=== PATIENT | male | born 1965 | race Caucasian/White ===

== ENCOUNTER 2019-04-06 07:03 | Emergency (ER) | payer BC ==
[2019-04-06] MEDS ORDERED: Codeine/guaiFENesin 100mg-10 MG/5 ML Syrup 10 ML Cup PO ONE (07:37)
--- NOTE | 2019-04-06 07:45 | EDM.PDOC ---
ED HPI GENERAL MEDICAL PROBLEM - General Chief Complaint: ENT Problem Stated Complaint: THROAT SORE AND WITH BREATHING ISSUES Time Seen by Provider: 04/06/19 07:35 Source of Information: Reports: Patient, RN History Limitations: Reports: Other (limited access to medical records) - History of Present Illness INITIAL COMMENTS - FREE TEXT/NARRATIVE: 54 yo male on vacation from [place] presents with throat pain and trouble swallowing. He is here for anther week, after being here for a week. Was seen recently in [facility] before starting his vacation and begun on prednisone and guaifenesin. Later when he was not improving he presented to the [facility] and they told him his sx's were viral. Overnight he has developed a sense of there being something stuck in his throat. When he tried to drink water today if felt like he was going to choke. His temp last night was 99F. He does have clear rhinorrhea, but no trouble breathing through his nose. Breathing is uncomfortable through his mouth. Took ibuprofen last before going to bed last night. Feel the onset of his sx's began after smoking a cigar. Onset: Gradual Onset Date: 04/01/19 Duration: Day(s):, Getting Worse Location: Reports: Neck (throat) Quality: Reports: Pressure Severity: Moderate Improves with: Reports: Other (not swallowing or breathing) Worsens with: Reports: Eating Context: Reports: Other (see HPI) Associated Symptoms: Reports: Fever/Chills (low grade fever), Shortness of Breath (feels difficult to breath. ). Denies: Nausea/Vomiting Treatments PROP WORKER: Reports: Other (see below) (none since last night) - Related Data Allergies Allergy/AdvReac Type Severity Reaction Status Date / Time No Known Allergies Allergy Verified 04/06/19 07:24 Home Meds: Home Meds Ibuprofen 400 mg PO Q6HR 04/06/19 [History] Past Medical History Musculoskeletal History: Reports: Fracture - Past Surgical History HEENT Surgical History: Reports: Tonsillectomy Musculoskeletal Surgical History: Reports: Ganglion Cyst Social & Family History - Tobacco Use Tobacco Use Comment: has occasional cigar - Recreational Drug Use Recreational Drug Use: No ED ROS ENT - Review of Systems Review Of Systems: See Below Constitutional: Reports: Fever (low grade). Denies: Chills HEENT: Reports: Rhinitis, Throat Pain. Denies: Ear Pain, Eye Discharge, Nosebleed, Sinus Problem, Vertigo Respiratory: Denies: Shortness of Breath, Cough, Sputum Cardiovascular: Reports: No Symptoms Endocrine: Reports: No Symptoms GI/Abdominal: Reports: No Symptoms : Reports: No Symptoms Musculoskeletal: Reports: No Symptoms Skin: Reports: No Symptoms Neurological: Reports: No Symptoms Psychiatric: Reports: No Symptoms ED EXAM, ENT - Physical Exam Exam: See Below Exam Limited By: No Limitations General Appearance: Alert, WD/WN, No Apparent Distress Eye Exam: Bilateral Eye: Normal Inspection Ears: Normal External Exam, Normal Canal, Hearing Grossly Normal, Normal TMs Nose: Normal Inspection, No Blood, Clear Rhinorrhea Mouth/Throat: Normal Inspection, Normal Lips, Normal Oropharynx. No: Pharyngeal Erythema, Tonsillar Erythema, Tonsillar Exudates, Tonsillar Swelling , Uvular Deviation, Uvular Edema Head: Atraumatic, Normocephalic Neck: Normal Inspection, Supple, Non-Tender Respiratory/Chest: No Respiratory Distress, Lungs Clear, Normal Breath Sounds, No Accessory Muscle Use Cardiovascular: Regular Rate, Rhythm, No Edema GI/Abdominal: Normal Bowel Sounds Back: Normal Inspection Extremities: Normal Inspection, Normal Range of Motion, Non-Tender, No Pedal Edema Neurological: Alert, Oriented, CN II-XII Intact, Normal Cognition, No Motor/ Sensory Deficits Psychiatric: Normal Affect, Anxious (mild) Skin: Warm, Dry, Intact, Normal Color, No Rash Course - Vital Signs Text/Narrative:: Dr. Leach has agreed to see Clarence in his office today in [place]. Last Recorded V/S: Last Vital Signs Temp 35.8 C 04/06/19 07:22 Pulse 84 04/06/19 07:22 Resp 16 04/06/19 07:22 BP 119/79 04/06/19 07:22 Pulse Ox 99 04/06/19 07:22 - Orders/Labs/Meds Labs: Laboratory Tests 04/06/19 04/06/19 Range/Units 08:01 08:01 WBC 6.3 (4.5-11.0) K/uL RBC 4.63 (4.30-5.90) M/uL Hgb 13.6 (12.0-15.0) g/dL Hct 40.9 (40.0-54.0) % MCV 88 (80-98) fL MCH 29 (27-31) pg MCHC 33 (32-36) % Plt Count 276 (150-400) K/uL C-Reactive Protein 1.28 H (0.0-0.3) mg/dL Meds: Medications Discontinued Medications Generic Name Dose Route Start Last Admin Trade Name Denise PRN Reason Stop Dose Admin Guaifenesin/Codeine Phosphate 10 ml 04/06/19 07:37 04/06/19 07:46 Robitussin Ac PO 04/06/19 07:38 10 ml ONETIME ONE Administration - Radiology Interpretation Free Text/Narrative:: soft tissue neck X-ray-neg Departure - Departure Time of Disposition: 08:47 Disposition: Home, Self-Care 01 Condition: Good Clinical Impression: Throat pain in adult - Discharge Information *PRESCRIPTION DRUG MONITORING PROGRAM REVIEWED*: No *COPY OF PRESCRIPTION DRUG MONITORING REPORT IN PATIENT GODWIN: No Instructions: Pain Without a Known Cause Referrals: PCP,None [Primary Care Provider] - Forms: ED Department Discharge Additional Instructions: Go to Dr. Leach's office to be seen later today, either before 11 am or after 1 pm. [address] in [address] [facility] and [facility] in [place], [place]. Don't eat or drink before being seen in the event he has to sedate you.
--- NOTE | 2019-04-06 08:38 | CRLCR ---
INDICATION: Pain and trouble swallowing TECHNIQUE: Soft tissue neck 1 view. COMPARISON: None. FINDINGS: The airway is patent and normal. Epiglottis is normal. The retropharyngeal soft tissues are normal. No obvious masses. Degenerative spondylosis is present in the cervical spine at C5-6. IMPRESSION: Unremarkable soft tissue view of the neck. Dictated by Jon Patel MD @ 04/06/2019 8:36:54 AM Dictated by: Jon Patel MD @ 04/06/2019 08:37:01 (Electronically Signed)
== END 2019-04-06 09:08 | disposition home or self-care (01) ==
LOC: JP.ED 07:03
DX: R07.0 Pain in throat (principal); Z98.890 Other specified postprocedural states
CPT/HCPCS: 36415; 70360; 85027; 86140; 99283; A9270